=== PATIENT | male | born 1995 | race Caucasian/White ===

== ENCOUNTER 2017-02-20 21:58 | Emergency (ER) | payer OTHER ==
[~2017-02-20] VITALS: Ht 177.8 cm; Wt 70.3 kg
[2017-02-20] MEDS ORDERED: MERC50TA (22:09)
[2017-02-20] MEDS ORDERED: LIDOCAINE 2% 20 ML (XYLOCAINE) VIAL ONE (22:20)
[2017-02-20] MEDS ORDERED: MUPI15CR TP (22:45)
--- NOTE | 2017-02-20 22:45 | ED Upper Extremity ---
General Chief Complaint: Laceration Stated Complaint: RT HAND LACERATION Nursing Triage Note: RIGHT HAND AVULSION Nursing Sepsis Screen: No Definite Risk Source: patient History of Present Illness Time seen by provider: 22:18 Initial Comments C/O LACERATION TO RIGHT HAND STATES AROUND 1745 TONIGHT, HE WAS WASHING A GLASS AT HOME AND IT BROKE, CUTTING RIGHT HAND--DORSUM OF RIGHT 5TH MCP JOINT AREA NO MOTOR OR SENSORY DEFICITS PT IS RIGHT HANDED NO PRIOR INJURY TO THIS HAND/FINGER Allergies and Home Medications Allergies Coded Allergies: No Known Drug Allergies (Unverified , 02/20/17) Home Medications Mercaptopurine 50 Mg Tablet, #180 (Reported) Mupirocin Calcium 15 Gm Cream..g., 15 GM TP BID, #22 Prescribed by: SAAD PORTER on 02/20/17 5005 Constitutional: no symptoms reported Musculoskeletal: see HPI Skin: see HPI Psychiatric/Neurological: No Symptoms Reported Past Soubeer-Umkhoj-Ljwkpf Hx Patient Social History Alcohol Use: Occasionally Uses Recreational Drug Use: No Smoking Status: Never a Smoker 2nd Hand Smoke Exposure: No Recent Foreign Travel: No Contact w/Someone Who Travel: No Recent Infectious Disease Expo: No Recent Hopitalizations: No Immunizations Up To Date Tetanus Booster (TDap): Less than 5yrs PED Vaccines UTD: Yes Seasonal Allergies Seasonal Allergies: No Surgeries HX Surgeries: No Respiratory Hx Respiratory Disorders: No Cardiovascular Hx Cardiac Disorders: No Neurological Hx Neurological Disorders: No Genitourinary Hx Genitourinary Disorders: No Gastrointestinal Hx Gastrointestinal Disorders: Yes (UCLERATIVE COLITIS--TAKES 6 MP ( MERCAPTOPURINE ) ) Gastrointestinal Disorders: Colitis Musculoskeletal Hx Musculoskeletal Disorders: No Endocrine Hx Endocrine Disorders: No HEENT HX ENT Disorders: No Cancer Hx Cancer: No Psychosocial Hx Psychiatric Problems: No Integumentary HX Skin/Integumentary Disorder: No Blood Transfusions Hx Blood Disorders: No Physical Exam Vital Signs Vital Sign - Last 12Hours 02/20/17 22:09 Temp 98.9 Pulse 102 Resp 18 B/P (MAP) 132/88 Pulse Ox 100 O2 Delivery Room Air Capillary Refill : Less Than 3 Seconds General Appearance: WD/WN, no apparent distress Hand: normal ROM, Right, laceration (1 1/2 X 2 CM SKIN AVULSION TO DORSUM OF RIGHT 5TH MCP JOINT. FULL ROM. MOTOR/SENSORY / VASCULAR INTACT. MODERATE PERSISTENT OOZING FROM WOUND) Neurologic/Tendon: normal sensation, normal motor functions, normal tendon functions Neurologic/Psychiatric: general ophthalmologist II-XII nml as tested, no motor/sensory deficits, alert, normal mood/affect, oriented x 3 Skin: normal color, warm/dry, other ( ABOVE) Laceration Repair : Other Wound Location DORSUM OF RIGHT HAND Wound's Depth, Shape: superficial Wound Explored: clean Betadine Prep?: No Sterile Dressing Applied?: Yes Progress AREA INJECTED WITH 2% LIDOCAINE PLAIN. CLEANSED WITH BETASEPT AND SALINE ALL BLEEDING SITES CAUTERIZED WITH FINE TIP ELECTROCAUTERY DRESSED WITH BACTROBAN AND STERILE DRESSING. PT TOLERATED WELL Progress/Results/Core Measures Results/Orders My Orders Orders - SAAD PORTER DO Lidocaine 2% Injection 20 Ml (Xylocaine (02/20/17 22:20) Mupirocin Ointment (Bactroban Ointment (02/21/17 09:00) Wound Dressing-Ed (02/20/17 22:42) Rx-Mupirocin 2% Oint (Rx-Bactroban) (02/20/17 22:46) Medications Given in ED Current Medications Medications Dose Ordered Sig/Serafin Route Start Time Stop Time Status Last Admin Dose Admin Lidocaine HCl 20 ml STK-MED ONCE .ROUTE 02/20/17 22:20 02/20/17 22:25 DC 02/20/17 22:35 20 ML Mupirocin 22 gm STK-MED ONCE .ROUTE 02/20/17 22:46 02/20/17 22:53 DC 02/20/17 22:56 22 GM Vital Signs/I&O Vital Sign - Last 12Hours 02/20/17 02/20/17 22:09 22:57 Temp 98.9 98.9 Pulse 102 102 Resp 18 18 B/P (MAP) 132/88 Pulse Ox 100 100 O2 Delivery Room Air Room Air Blood Pressure Mean: 103 Departure Impression Impression: Primary Impression: Avulsion of skin of left hand Disposition: 01 HOME, SELF-CARE Condition: Stable Departure-Patient Inst. Referrals: RUDI HERMAN DO (PCP/Family) Primary Care Physician Patient Instructions: SKIN AVULSION Add. Discharge Instructions: CLEAN WOUND TWICE A DAY WITH SOAP AND WATER, APPLY NON-ADHERENT DRESSING TWICE A DAY OTHERWISE KEEP WOUND CLEAN AND DRY KEEP COVERED UNTIL WELL HEALED FOLLOW UP WITH YOUR DR OR RETURN TO ER IF PROBLEMS All discharge instructions reviewed with patient and/or family. Voiced understanding. Scripts Mupirocin Calcium (Bactroban) 15 Gm Cream..g. 15 GM TP BID, #22 TUBE Prov: SAAD PORTER DO 02/20/17 Images Extremities-Upper 1 - Other-See Progress Note SAAD PORTER DO Feb 20, 2017 22:45
[2017-02-20] MEDS ORDERED: RX-MUPIROCIN (BACTROBAN) 2% OINT 22 GM TUBE ONE (22:46)
[2017-02-20 22:57] VITALS: BP 132/88
[2017-02-20] MEDS ORDERED: RX-MUPIROCIN (BACTROBAN) 2% OINT 22 GM TUBE TOP STA (23:05)
[2017-02-21] MEDS ORDERED: MUPIROCIN 2% OINT 22 GM (BACTROBAN) TUBE TOP SCH (09:00)
== END 2017-02-20 22:56 | disposition home or self-care (01) ==
LOC: ER 22:02
DX: S61.216A Laceration without foreign body of right little finger without damage to nail, initial encounter (principal); K51.90 Ulcerative colitis, unspecified, without complications; W25.XXXA Contact with sharp glass, initial encounter